=== PATIENT | male | born 2000 | race Caucasian/White ===

== ENCOUNTER 2018-10-31 01:45 | Emergency (ER) | payer OTHER ==
[~2018-10-31] VITALS: Ht 177.8 cm; Wt 70.3 kg
[~2018-10-31 01:45] MED LIST: ALBUTEROL0.09 MG/A2 IH; AUGMENTIN 500 M1 TAB PO; CEPHALEXIN500 M1 PO; IBU-6600 MG PO; MOTRIN800 MG PO; MUCINEX D 600 M1 TE1 PO; NKHM; NO DAILY MEDS; REMERON15 MG PO; SINGULAIR10 MG PO; TYLENOL W/CODEI1 TA2 PO; VYVANSE60 MG PO; ZITHROMAX Z PA250 MG PO; ZOLOFT25 MG PO
[2018-10-31 01:47] VITALS: BP 169/107
== END 2018-10-31 03:06 | disposition home or self-care (01) ==
LOC: ED 01:45
DX: S90.31XA Contusion of right foot, initial encounter (principal); S90.32XA Contusion of left foot, initial encounter; Z79.899 Other long term (current) drug therapy; W22.8XXA Striking against or struck by other objects, initial encounter; Y93.89 Activity, other specified; Y92.89 Other specified places as the place of occurrence of the external cause; Y99.8 Other external cause status